=== PATIENT | male | born 1965 | race American Indian/Alaskan Native ===

== ENCOUNTER 2016-09-09 19:00 | Emergency (ER) | payer SELFPAY ==
[2016-09-09] MEDS ORDERED: TYLENOL ONE (19:52)
[2016-09-09] MEDS ORDERED: TYLENOL PO ONE (20:10)
--- NOTE | 2016-09-10 00:21 | Emergency Department Report ---
Upper Extremity - HPI Chief Complaint: Extremity Injury, Upper Stated Complaint: LEFT HAND PAIN/FINGERS SWELLING Time Seen by Provider: 09/10/16 00:20 Upper Extremity: Left Hand (pain 5 years. Worse 2 days.) Occurred When: >5 Days (5 years) Mechanism: Unsure Severity: mild (310) Symptoms: Yes Pain with Movement (left hand and finger pain), Yes Swelling ( fingers), No Deformity, No Limited Range of Movement, No Numbness, No Weakness, No Bruising/Ecchymosis, No Laceration or Abrasion Other History: Pt here reporting that over the last 5 years he has been having left hand pain but it's gotten worse over the last 2 days and the doctors told him it might be arthritis so he thought he might come and get an x-ray to find out what's going on. He states that his fingers are swollen to the left hand. 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 Denies any trauma. He is also complaining that he has decreased hearing in his right ear and he wants to be checked for wax that is the ears. This has been going on for 3 days. Denies any fever or chills. Denies any injury or trauma. Denies any nausea or vomiting or drainage from ears. It is any numbness or tingling to extremities. ED Review of Systems ROS: Stated complaint: LEFT HAND PAIN/FINGERS SWELLING Other details as noted in HPI Comment: All other systems reviewed and negative Constitutional: denies: chills, fever Eyes: denies: eye discharge ENT: other (decrease here and to right ear). denies: ear pain, throat pain Respiratory: no symptoms reported Cardiovascular: denies: chest pain, palpitations, edema, syncope Gastrointestinal: denies: abdominal pain, nausea, vomiting Musculoskeletal: joint swelling, arthralgia. denies: back pain, myalgia Skin: denies: rash Neurological: denies: headache, weakness, numbness, paresthesias, confusion, abnormal gait, vertigo ED Past Medical Hx - Past Medical History Previous Medical History?: Yes Additional medical history: Left hand pain for 5 years - Surgical History Past Surgical History?: No - Family History Family history: no significant - Social History Smoking Status: Never Smoker Substance Use Type: None - Medications Home Medications: Home Medications Medication Instructions Recorded Confirmed Last Taken Type Cetirizine HCl [ZyrTEC] 10 mg PO QAM #14 capsule 09/10/16 Unknown Rx Fluticasone [Flonase] 1 spray NS QDAY #1 bottle 09/10/16 Unknown Rx Ibuprofen [Motrin] 600 mg PO Q8H PRN #15 tablet 09/10/16 Unknown Rx Upper Extremity Exam - Exam General: Vital signs noted. No distress. Alert and acting appropriately. This is a 50-year-old male well-nourished well-developed in no acute distress. Head and Torso: Yes HEENT Abnormality ( Bilateral TM congested without any erythema.simran nasal mucosa congested without erythema . clear drainage. Sinuses NTTP. Normal oral mucosa. NL response to whisper), Yes Abdominal Tenderness ( nontender to palpate. Normal bowel sound.no distention .), No Neck Tenderness, No Chest/Lungs Abnormality (lungs clear to auscultate bilaterally, no rhonchi wheezes or rales.), No Back Tenderness (full range of motion and normal inspection.) Shoulder Exam: Yes Normal Range of Motion in Shoulder, No Shoulder Tenderness, No Clavicle Tenderness, No Shoulder Deformity, No AC Joint Tenderness Arm Exam: No Arm/Humerus Tenderness, No Arm Deformity Elbow: Yes Normal Range of Motion in Elbow, No Elbow Tenderness, No Elbow Deformity Forearm: No Forearm Tenderness, No Forearm Deformity, No Pain with Pronation, No Pain with Supination Wrist: Yes Normal ROM in Wrist, No Wrist Tenderness, No Wrist Deformity, No Snuffbox Tenderness, No Pain with Axial Thumb Compression Hand: Yes Normal ROM in Digit(s), No Hand Tenderness, No Hand Deformity, No Digit Tenderness, No Digit(s) Deformity, No Tendon Dysfunction CMS Exam: Yes Normal Distal Pulses, Yes Normal Capillary Refill, Yes Normal Distal Sensation, No Broken Skin ED Course Vital Signs 09/09/16 19:51 Temperature 98.2 F Pulse Rate 54 L Respiratory 20 Rate Blood Pressure 120/82 [Right] O2 Sat by Pulse 100 Oximetry Vital Signs 09/09/16 09/10/16 19:51 00:35 Temperature 98.2 F Pulse Rate 54 L Respiratory 20 16 Rate Blood Pressure 120/82 [Right] O2 Sat by Pulse 100 Oximetry - Reevaluation(s) Reevaluation #1: 09/10/16 00:52 Received Motrin in emergency room for complaint of pain to left hand. - Orthopedic Splinting/Casting Injury #1 Side: left Upper Extremity Injury Location: hand Upper Extremity Immobilizer: wrist splint ED Medical Decision Making - Radiology Data Radiology results: report reviewed XRay of left hand reveals normal without any bony abnormality. - Medical Decision Making ED course: This a patient that his x-ray was normal and it didn't show any arthritis, fracture or dislocation. Patient with arthralgia left hand that's been ongoing for 5 years. He also reports decreased hearing to his right ear and thought he might of had earwax but he has upper respiratory infection. This was discussed with patient along with treatment plan and he voiced understanding. See procedure note for splint in detail. Discharged home with prescription for Flonase, Motrin and Zyrtec. I discussed with him that he needs to follow-up with orthopedic doctor for further testing for chronic left hand pain. Critical care attestation.: If time is entered above; I have spent that time in minutes in the direct care of this critically ill patient, excluding procedure time. ED Disposition Clinical Impression: Arthralgia of left hand, Upper respiratory infection, acute Disposition: DISCHARGED TO HOME OR SELFCARE Is pt being admited?: No Does the pt Need Aspirin: No Condition: Stable Instructions: Upper Respiratory Infection (ED), Arthralgia (ED) Additional Instructions: Follow-up with orthopedic doctor regarding chronic left hand pain Use Zyrtec and Flonase and this will help to relieve congestion behind ears and nose. Take Motrin as prescribed for pain. Prescriptions: Cetirizine HCl [ZyrTEC] 10 mg PO QAM #14 capsule Fluticasone [Flonase] 1 spray NS QDAY #1 bottle Ibuprofen [Motrin] 600 mg PO Q8H PRN #15 tablet PRN Reason: Pain Referrals: DAVID HDZ MD [Staff Physician] - 7-10 days [facility] [Outside] - 09/14/16 Forms: Work/School Release Form(ED)
[2016-09-10] MEDS ORDERED: MOTRIN PO ONE (00:22)
--- NOTE | 2016-09-10 00:27 | XRay Report ---
FINAL REPORT PROCEDURE: XR HAND 3 LT TECHNIQUE: LEFT hand radiographs, AP, lateral, and oblique views. CPT 74753-KA HISTORY: LEFT HAND pain, swollen fingers, send for report COMPARISON: No prior studies are available for comparison. FINDINGS: Fracture (s) and/or Dislocation(s): None . Alignment: Normal . Joint space(s): Normal . Soft tissues: Normal . Bone mineralization: Normal . Foreign bodies: None . IMPRESSION: No evidence of an acute fracture or dislocation the left hand.
[2016-09-10 01:03] VITALS: BP 121/79
== END 2016-09-10 01:03 | disposition home or self-care (01) ==
LOC: ED 19:00
DX: J06.9 Acute upper respiratory infection, unspecified (principal); M79.642 Pain in left hand
CPT/HCPCS: 99283

== ENCOUNTER 2017-02-23 18:33 | Emergency (ER) | payer SELFPAY ==
[2017-02-23] MEDS ORDERED: TYLENOL ONE (19:31)
[2017-02-23] MEDS ORDERED: TYLENOL PO ONE (21:19)
[2017-02-24 00:46] VITALS: BP 129/81
[2017-02-24] MEDS ORDERED: TORADOL IM ONE (00:59)
--- NOTE | 2017-02-24 01:01 | XRay Report ---
FINAL REPORT EXAM: XR FOOT 2V LT HISTORY: Impact 1st Digit Left Foot, Pain, Swollen, Report COMPARISON: None available. FINDINGS: Two views of the left foot obtained. Bony structures are intact. Joint spaces are preserved. No acute fracture dislocation. IMPRESSION: No acute bony abnormality.
--- NOTE | 2017-02-24 01:04 | Emergency Department Report ---
HPI - General Chief Complaint: Extremity Injury, Lower Time Seen by Provider: 02/24/17 00:53 - HPI HPI: 51-year-old male presents today complaining of left second toe pain post- hitting it on a bed H5 days ago. The patient states it has been swollen ever since. With his pain is 8 out of 10 constant ache. Denies numbness, weakness, paresthesias. Denies trying any medication for pain relief. Denies fever, chills, nausea, vomiting, chest pain, shortness of breath, abdominal pain. ED Past Medical Hx - Past Medical History Previous Medical History?: Yes Additional medical history: Left hand pain for 5 years - Surgical History Past Surgical History?: No - Social History Smoking Status: Current Every Day Smoker Substance Use Type: None - Medications Home Medications: Home Medications Medication Instructions Recorded Confirmed Last Taken Type Cetirizine HCl [ZyrTEC] 10 mg PO QAM #14 capsule 09/10/16 Unknown Rx Fluticasone [Flonase] 1 spray NS QDAY #1 bottle 09/10/16 Unknown Rx Ibuprofen [Motrin] 600 mg PO Q8H PRN #15 tablet 09/10/16 Unknown Rx Acetaminophen/Codeine [Tylenol 1 tab PO Q6H PRN #15 tab 02/24/17 Unknown Rx /Codeine # 3 tab] ED Review of Systems ROS: Stated complaint: LEFT FOOT SWOLLEN Other details as noted in HPI Constitutional: denies: chills, fever, malaise Eyes: denies: eye pain ENT: denies: ear pain, throat pain, congestion Respiratory: denies: cough, shortness of breath, wheezing Cardiovascular: denies: chest pain, palpitations Endocrine: no symptoms reported Gastrointestinal: denies: abdominal pain, nausea, vomiting Musculoskeletal: joint swelling, arthralgia Skin: denies: rash Neurological: denies: headache, weakness, numbness, paresthesias Physical Exam - Physical Exam Vital Signs: Vital Signs 02/23/17 02/24/17 19:25 00:46 Temperature 98.6 F 97.7 F Pulse Rate 70 61 Respiratory 16 18 Rate Blood Pressure 106/68 129/81 [Right] O2 Sat by Pulse 100 100 Oximetry Physical Exam: GENERAL: The patient is well-developed and well-nourished. Patient is in NAD. HEAD: Normocephalic. Atraumatic. NECK: Supple, nontender, without lymphadenopathy. No meningitic signs are noted. CHEST/LUNGS: Clear to auscultation throughout. HEART/CARDIOVASCULAR: Regular rate and rhythm. No murmurs, rubs or gallops. ABDOMEN: Abdomen is soft, nontender. Bowel sounds normoactive. No guarding or rebound tenderness. EXTREMITIES: Tenderness to palpation left second toe PIP joint. Positive for moderate edema. Normal sensation. Peripheral pulses intact. Capillary refill less than 2 seconds. Otherwise musculoskeletal exam is unremarkable. NEURO: Alert and oriented x 3. Antalgic gait. ED Course Vital Signs 02/23/17 02/24/17 19:25 00:46 Temperature 98.6 F 97.7 F Pulse Rate 70 61 Respiratory 16 18 Rate Blood Pressure 106/68 129/81 [Right] O2 Sat by Pulse 100 100 Oximetry ED Medical Decision Making - Lab Data Vital Signs 02/23/17 02/24/17 02/24/17 19:25 00:46 01:06 Temperature 98.6 F 97.7 F Pulse Rate 70 61 Respiratory 16 18 18 Rate Blood Pressure 106/68 129/81 [Right] O2 Sat by Pulse 100 100 Oximetry - Radiology Data Radiology results: report reviewed EXAM: XR FOOT 2V LT HISTORY: Impact 1st Digit Left Foot, Pain, Swollen, Report COMPARISON: None available. FINDINGS: Two views of the left foot obtained. Bony structures are intact. Joint spaces are preserved. No acute fracture dislocation. IMPRESSION: No acute bony abnormality. - Medical Decision Making 51-year-old male presents today complaining of left second toe pain and swelling post striking him on the bed ledge 5 days ago. His x-ray results revealed no acute findings. Patient is in no acute distress at this time. He will be discharged home and is encouraged to follow up with a primary care provider. He has been provided with a referral for orthopedic to follow-up with. He will be sent home on Tylenol 3 and is encouraged to return to the emergency room for any worsening symptoms. Critical care attestation.: If time is entered above; I have spent that time in minutes in the direct care of this critically ill patient, excluding procedure time. ED Disposition Clinical Impression: Foot pain Qualifiers: Laterality: right Qualified Code(s): M79.671 - Pain in right foot Disposition: -01 TO HOME OR SELFCARE Is pt being admited?: No Does the pt Need Aspirin: No Condition: Stable Instructions: Foot Sprain (ED), Arthralgia (ED) Additional Instructions: Follow-up with primary care provider and orthopedics. Return to the emergency department if symptoms worsen. Prescriptions: Acetaminophen/Codeine [Tylenol /Codeine # 3 tab] 1 tab PO Q6H PRN #15 tab PRN Reason: Pain Referrals: PRIMARY CAREMD [Primary Care Provider] - 3-5 Days DAVID HDZ MD [Staff Physician] - 3-5 Days Forms: Work/School Release Form(ED) Time of Disposition: 01:36
== END 2017-02-24 02:13 | disposition home or self-care (01) ==
LOC: ED 18:33
DX: M79.672 Pain in left foot (principal); F17.210 Nicotine dependence, cigarettes, uncomplicated
CPT/HCPCS: 73620; 96372; 99283; J1885

== ENCOUNTER 2017-08-14 01:43 | Emergency (ER) | payer OTHER ==
[2017-08-14 03:29] VITALS: BP 137/83
--- NOTE | 2017-08-14 07:13 | Emergency Department Report ---
ED Upper Extremity Inj HPI - General Chief Complaint: Extremity Injury, Upper Stated Complaint: LEFT THUMB PAIN/SWELLING Time Seen by Provider: 08/14/17 06:58 Source: patient Mode of arrival: Ambulatory Limitations: No Limitations - History of Present Illness Initial Comments: This is a 51-year-old male nontoxic, well nourished in appearance, no acute signs of distress presents to the ED with c/o of left thumb pain and swelling x2 weeks. Patient stated denies any trauma to the area. Patient describes pain as aching with level of 8/10. Patient denies fever, chills, headache, nausea, vomiting, chest pain, shortness of breathe. Patient denies any allergies or PMH. MD Complaint: Injury to:: left, finger -: week(s) (2) Other Extremity Injury: Fingers: Left Other Injuries: none Severity scale (0 -10): 8 Improves With: none Worsens With: none Associated Symptoms: denies other symptoms. denies: weakness, numbness, neck pain, suspects foreign body, nausea/vomiting, heard/felt popping sensat - Related Data Previous Rx's Medication Instructions Recorded Last Taken Type Cetirizine HCl [ZyrTEC] 10 mg PO QAM #14 capsule 09/10/16 Unknown Rx Fluticasone [Flonase] 1 spray NS QDAY #1 bottle 09/10/16 Unknown Rx Ibuprofen [Motrin] 600 mg PO Q8H PRN #15 tablet 09/10/16 Unknown Rx Acetaminophen/Codeine [Tylenol 1 tab PO Q6H PRN #15 tab 02/24/17 Unknown Rx /Codeine # 3 tab] Sulfamethoxazole/Trimethoprim 1 each PO BID #14 tablet 08/14/17 Unknown Rx [Bactrim DS TAB] traMADol [Ultram] 50 mg PO Q6HR PRN #12 tablet 08/14/17 Unknown Rx Allergies Allergy/AdvReac Type Severity Reaction Status Date / Time No Known Allergies Allergy Verified 09/09/16 19:57 ED Review of Systems ROS: Stated complaint: LEFT THUMB PAIN/SWELLING Other details as noted in HPI Constitutional: denies: chills, fever Eyes: denies: eye pain, eye discharge, vision change ENT: denies: ear pain, throat pain Respiratory: denies: cough, shortness of breath, wheezing Cardiovascular: denies: chest pain, palpitations Endocrine: no symptoms reported Gastrointestinal: denies: abdominal pain, nausea, diarrhea Genitourinary: denies: urgency, dysuria Musculoskeletal: denies: back pain, joint swelling, arthralgia Skin: denies: rash, lesions Neurological: denies: headache, weakness, paresthesias Psychiatric: denies: anxiety, depression Hematological/Lymphatic: denies: easy bleeding, easy bruising ED Past Medical Hx - Past Medical History Previous Medical History?: No Additional medical history: Left hand pain for 5 years - Social History Smoking Status: Never Smoker - Medications Home Medications: Home Medications Medication Instructions Recorded Confirmed Last Taken Type Cetirizine HCl [ZyrTEC] 10 mg PO QAM #14 capsule 09/10/16 Unknown Rx Fluticasone [Flonase] 1 spray NS QDAY #1 bottle 09/10/16 Unknown Rx Ibuprofen [Motrin] 600 mg PO Q8H PRN #15 tablet 09/10/16 Unknown Rx Acetaminophen/Codeine [Tylenol 1 tab PO Q6H PRN #15 tab 02/24/17 Unknown Rx /Codeine # 3 tab] Sulfamethoxazole/Trimethoprim 1 each PO BID #14 tablet 08/14/17 Unknown Rx [Bactrim DS TAB] traMADol [Ultram] 50 mg PO Q6HR PRN #12 tablet 08/14/17 Unknown Rx ED Physical Exam - General Limitations: No Limitations General appearance: alert, in no apparent distress - Head Head exam: Present: atraumatic, normocephalic - Eye Eye exam: Present: normal appearance Pupils: Present: normal accommodation - ENT ENT exam: Present: normal exam, mucous membranes moist - Neck Neck exam: Present: normal inspection, full ROM. Absent: tenderness, meningismus - Respiratory Respiratory exam: Present: normal lung sounds bilaterally. Absent: respiratory distress, wheezes, rales, rhonchi, stridor - Cardiovascular Cardiovascular Exam: Present: regular rate, normal rhythm, normal heart sounds. Absent: bradycardia, tachycardia, irregular rhythm, systolic murmur, diastolic murmur, rubs, gallop - GI/Abdominal GI/Abdominal exam: Present: soft, normal bowel sounds - Rectal Rectal exam: Present: deferred - Extremities Exam Extremities exam: Present: normal inspection, full ROM, tenderness, normal capillary refill. Absent: joint swelling - Expanded Upper Extremity Exam Left General: Present: normal inspection Shoulder Exam: Present: normal inspection, full ROM Upper Arm exam: Present: normal inspection, full ROM Elbow exam: Present: normal inspection, full ROM Forearm Wrist exam: Present: normal inspection, full ROM Hand Wrist exam: Present: normal inspection, full ROM, tenderness, swelling, erythema. Absent: abrasion, laceration, ecchymosis, deformity, crepidus, dislocation, amputation, nail avulsion, subungual hematoma Hand L/R Back: 1 - Paronychia Neuro motor exam: Present: wrist extension intact, thumb opposition intact, thumb IP flexion intact, thumb adduction intact, fingers 2-5 abduction intact Neurosensory exam: Present: 2-point discrimination, radial nerve intact, ulnar nerve intact, median nerve intact Vascular: Present: vascular compromise, normal capillary refill, radial pulse, brachial pulse, ulnar pulse - Back Exam Back exam: Present: normal inspection, full ROM - Neurological Exam Neurological exam: Present: alert, oriented X3, normal gait - Psychiatric Psychiatric exam: Present: normal affect, normal mood - Skin Skin exam: Present: warm, dry, intact, normal color. Absent: rash ED Course Vital Signs 08/14/17 03:24 Temperature 98.7 F Pulse Rate 60 Respiratory 20 Rate Blood Pressure 137/83 O2 Sat by Pulse 99 Oximetry - Reevaluation(s) Reevaluation #1: 08/14/17 07:11 Patient is speaking in full sentences with no signs of distress noted. - I & D Left Finger Site: left thumb Blade Size: 11 I & D Procedure: betadine prep, sterile drapes applied, sterile dressing applied , gauze wick placed Progress: Under sterile field, I used Betadine to cleanse the area. I then used an 11 blade to spread the cuticle area. About 1 mL of purulent drainage has been noted. I then used sterile 0.9% normal saline flush to flush the wound with total volume of 40 mL used. A sterile 4 x 4 with tape has been applied as dressing. Bleeding is under control. Patient tolerated the procedure well with no signs of distress noted. ED Medical Decision Making - Medical Decision Making This is a 51-year-old male that presents with left thumb paronychia. Patient is stable and was examined by me. This was incision and drainage and has been performed and patient tolerated well. A sterile dressing has been applied. Patient was educated on proper wound care. Patient is discharged with Bactrim and Ultram and was instructed not to operate any machinery while taking Ultram due to drowsiness. Patient was instructed to refer to Follow-up with a primary care doctor in 3-5 days or if symptoms worsen and continue return to emergency room as soon as possible. At time of discharge, the patient does not seem toxic or ill in appearance. No acute signs of distress noted. Patient agrees to discharge treatment plan of care. No further questions noted by the patient. Critical care attestation.: If time is entered above; I have spent that time in minutes in the direct care of this critically ill patient, excluding procedure time. ED Disposition Clinical Impression: Paronychia Disposition: DC- TO HOME OR SELFCARE Is pt being admited?: No Does the pt Need Aspirin: No Condition: Stable Instructions: Paronychia (ED), Tramadol (By mouth), Sulfamethoxazole/ Trimethoprim (By mouth) Additional Instructions: Follow-up with a primary care doctor in 3-5 days or if symptoms worsen and continue return to emergency room as soon as possible. Prescriptions: Sulfamethoxazole/Trimethoprim [Bactrim DS TAB] 1 each PO BID #14 tablet traMADol [Ultram] 50 mg PO Q6HR PRN #12 tablet PRN Reason: Pain Referrals: PRIMARY MD NAI [Primary Care Provider] - 3-5 Days IAN COPPOLA MD [Staff Physician] - 3-5 Days [facility] [Outside] - 3-5 Days [facility] [Outside] - 3-5 Days Forms: Work/School Release Form(ED)
[2017-08-14] MEDS ORDERED: MOTRIN PO ONE (07:14)
[2017-08-14] MEDS ORDERED: BOOSTRIX IM ONE (07:14)
== END 2017-08-14 07:35 | disposition home or self-care (01) ==
LOC: ED 01:43
DX: L03.012 Cellulitis of left finger (principal)
CPT/HCPCS: 90471; 99282